=== PATIENT | female | born 1995 | race Caucasian/White ===

== ENCOUNTER 2019-04-12 20:00 | Inpatient (IN) | payer OTHER ==
[~2019-04-12 20:00] MED LIST: DINOPROSTONE 10 MG VAGINAL SUPPOSITORY VG ONE
[2019-04-12 21:10] LABS: BASO % 0.7 % (0-2.0); EOS % 0.9 % (0-4.5); HEMATOCRIT 33.3 % (32.4-45.2); HEMOGLOBIN 10.7 GM/dL (10.7-15.3); LYMPH % 25.3 % (8-40); MCH 24.5 pg (25.7-33.7); MCHC 32.1 g/dl (32.0-36.0); MEAN CELL VOLUME 76.5 fl (80-96); MONO % 6.6 % (3.8-10.2); NEUT % 66.5 % (42.8-82.8); PLATELET COUNT 165 K/MM3 (134-434); RBC 4.35 M/mm3 (3.60-5.2); RDW 16.3 % (11.6-15.6); WHITE BLOOD COUNT 7.1 K/mm3 (4.0-10.0)
[2019-04-12 21:27] LABS: INR 0.92 (0.83-1.09); PROTHROMBIN TIME (PATIENT) 10.9 SEC (9.7-13.0)
[2019-04-12 21:29] LABS: ACTIVATED PTT 25.7 SECONDS (25.2-36.5)
[2019-04-12 21:37] LABS: BLOOD UREA NITROGEN 13.3 mg/dL (7-18); CALCIUM 8.7 mg/dL (8.5-10.1); CREATININE 0.7 mg/dL (0.55-1.3); POTASSIUM 3.5 mmol/L (3.5-5.1)
--- NOTE | 2019-04-12 22:03 | PN ---
Ante-Partal Exam - Subjective Subjective: Pt here cervidil induction due to postdates Vital Signs: Vital Signs Temperature Pulse Rate 91 H 04/12/19 21:00 Respiratory Rate 18 04/12/19 21:00 Blood Pressure 138/75 04/12/19 21:00 O2 Sat by Pulse Oximetry (%) Bleeding: No Headache: No Visual changes: No Right upper quadrant pain: No - Contractions Contractions: No Monitor Mode: External - Exam during Labor Heart Rate: 130 Variability: Moderate Heart Rate Location: [facility] Category: I Monitor Accelerations: Present Monitor Decelerations: None Exam: Vaginal (cervidil placed) Dilatation (cm): closed Effacement (%): 80 Amniotic Membrane Status: Intact Presentation: Vertex Station: 0 - Intrapartum Hemorrhage Risk Risk Score: 0 Risk Level: Low Risk - Assessment/Plan Assessment/Plan: Postdates at 40.4 week Plan cervidil placed
[2019-04-12 22:46] VITALS: BMI 32.8
[2019-04-13] MEDS: ELECTROLYTE-148 SOLN 1,000 ML IV SCH (02:00)
[2019-04-13] MEDS ORDERED: FENTANYL/BUPIVACAINE/NS/PF - PCEA - 50 ML DISP.SYRIN EP ONE (03:43)
[2019-04-13] MEDS ORDERED: BUPIVACAINE HCL/PF 0.25% (2.5MG/ML) 10 ML VIAL ONE (03:48)
[2019-04-13] MEDS ORDERED: NALOXONE HCL 0.4 MG/ML VIAL IVPUSH PRN (04:15)
[2019-04-13] MEDS ORDERED: FENTANYL/BUPIVACAINE/NS/PF - PCEA - 50 ML DISP.SYRIN EP SCH ×2 (04:15→04:49)
[2019-04-13] MEDS ORDERED: OXYTOCIN 20 UNITS in 0.9% NS 20 UNIT/1,000 ML INFUS.BAG IV ONE (04:16)
[2019-04-13] MEDS: OXYTOCIN 20 UNITS in 0.9% NS 20 UNIT/1,000 ML INFUS.BAG IV SCH (05:20)
[2019-04-13] MEDS ORDERED: METHYLERGONOVINE MALEATE 0.2 MG/1 ML AMP IM PRN (05:50)
[2019-04-13] MEDS ORDERED: WITCH HAZEL 50% (TUCKS) 40 PAD/JAR PAD TP PRN (05:50)
[2019-04-13] MEDS ORDERED: BENZOCAINE 20% 57 GM BOTTLE TP PRN (05:50)
[2019-04-13] MEDS ORDERED: BISACODYL 10 MG SUPP.RECT RC PRN (05:50)
[2019-04-13] MEDS ORDERED: BENZOCAINE 28 GM HEMORRHOIDAL OINTMENT TP PRN (05:50)
--- NOTE | 2019-04-13 05:53 | PN ---
Delivery - Delivery Vaginal Delivery: Spontaneous Type of Anesthesia: Epidural Episiotomy/Laceration: 2nd degree EBL (cc): 300 Delivery, Single - [place] Feeding Plan Initial Plan: Exclusive throughout hospitalization Remarks - Remarks Remarks: Normal spontaneous vaginal delivery of a live girl over second degree laceration. Nose / Oropharynx suctioned @ perineum. Cord clamped and cut. Baby handed to nurse. Placenta expelled spontaneously intact. Laceration repaired with 2.0 Chromic.
--- NOTE | 2019-04-13 05:56 | HP ---
Past Medical History - Admission Chief Complaint: Elective induction History of Present Illness: 23 yo , @ 40 weeks gestation, EDC 04/08/19, admitted for elective induction due to postdates . History Source: Patient Limitations to Obtaining History: No Limitations - Past Medical History ...: 1 ...Para: 0 ...EDC by Sono: 04/08/19 - Past Surgical History Past Surgical History: Yes: None Hx Myomectomy: No Hx Transabdominal Cerclage: No - Smoking History Smoking history: Never smoked - Alcohol/Substance Use Hx Alcohol Use: No - Social History Usual Living Arrangement: Yes: With Spouse History of Recent Travel: No Home Medications - Allergies Allergies/Adverse Reactions: Allergies Allergy/AdvReac Type Severity Reaction Status Date / Time No Known Drug Allergies Allergy Verified 04/13/19 04:48 - Home Medications Home Medications: Ambulatory Orders Pnv No.103/Folic/Om3s/Fish Oil [ Gummies] 1 each PO DAILY 04/13/19 Family Medical History Family History: Unremarkable Review of Systems - Review of Systems Constitutional: reports: No Symptoms Eyes: reports: No Symptoms HENT: reports: No Symptoms Neck: reports: No Symptoms Cardiovascular: reports: No Symptoms Respiratory: reports: No Symptoms Gastrointestinal: reports: No Symptoms Genitourinary: reports: No Symptoms Breasts: reports: No Symptoms Reported Musculoskeletal: reports: No Symptoms Integumentary: reports: No Symptoms Neurological: reports: No Symptoms Endocrine: reports: No Symptoms Hematology/Lymphatic: reports: No Symptoms Psychiatric: reports: No Symptoms Pain Intensity: 2 Physical Exam - Maternity Vital Signs: Vital Signs Temperature 98.1 F 04/13/19 04:00 Pulse Rate 75 04/13/19 04:50 Respiratory Rate 18 04/13/19 04:50 Blood Pressure 119/61 04/13/19 04:50 O2 Sat by Pulse Oximetry (%) 100 04/13/19 04:50 Constitutional: Yes: No Distress Eyes: Yes: Conjunctiva Clear HENT: Yes: Atraumatic Neck: Yes: Supple Cardiovascular: Yes: Regular Rate and Rhythm Lungs: Clear to auscultation - Abdominal Exam/OB Number of Fetuses: Single Presentation: Vertex - Vaginal Exam/OB Presentation: Vertex/Position Station: -2 - Physical Exam Integumentary: Yes: WNL ...Motor Strength: WNL Psychiatric: Yes: Alert, Oriented - Labs Lab Results: CBC, BMP 04/12/19 20:50 04/12/19 20:50 Problem List - Problems (1) 40 weeks gestation of Problems reviewed: Yes Code(s): Z3A.40 - 40 WEEKS GESTATION OF Assessment/Plan Postdates Admit for cervidil induction
[2019-04-13] MEDS ORDERED: IBUPROFEN 600 MG TABLET (FP) PO ONE (07:54)
[2019-04-13] MEDS ORDERED: ACETAMINOPHEN 325 MG TABLET (FP) ONE ×2 (07:55)
[2019-04-13] MEDS: IBUPROFEN 600 MG TABLET (FP) PO PRN ×2 (08:00→17:54)
[2019-04-13] MEDS: ACETAMINOPHEN 325 MG TABLET (FP) PO PRN ×2 (08:00→17:54)
[2019-04-13] MEDS: PRENATAL VITAMINS W/ FOLIC ACID TABLET (FP) PO SCH (10:33)
[2019-04-13] MEDS: FERROUS SO4 325 MG TABLET (FP) PO SCH ×2 (10:34→21:27)
--- NOTE | 2019-04-14 08:47 | PN ---
Post Progress Note - Subjective Subjective: 23 yo Para 1 status post vaginal delivery, seen and evaluated. Doing well Post Day: 1 Type of Delivery: Vital Signs: Vital Signs Temperature 97.9 F 04/14/19 08:28 Pulse Rate 73 04/14/19 08:28 Respiratory Rate 18 04/14/19 08:28 Blood Pressure 116/60 04/14/19 08:28 O2 Sat by Pulse Oximetry (%) 100 04/13/19 04:50 Breast Exam: Yes: Soft Uterus: Yes: Fundus Firm Abdomen/GI: Yes: Abdomen soft, Tolerating PO Lochia: Yes: Rubra Lochia, amount: Moderate Extremities: Yes: Calves non-tender Perineum: Yes: Laceration (Healing) Activity: Ambulating - Labs Labs: CBC WBC 7.1 K/mm3 (4.0-10.0) 04/12/19 20:50 RBC 4.35 M/mm3 (3.60-5.2) 04/12/19 20:50 Hgb 10.7 GM/dL (10.7-15.3) 04/12/19 20:50 Hct 33.3 % (32.4-45.2) 04/12/19 20:50 MCV 76.5 fl (80-96) L 04/12/19 20:50 MCH 24.5 pg (25.7-33.7) L 04/12/19 20:50 MCHC 32.1 g/dl (32.0-36.0) 04/12/19 20:50 RDW 16.3 % (11.6-15.6) H 04/12/19 20:50 Plt Count 165 K/MM3 (134-434) 04/12/19 20:50 MPV 10.0 fl (7.5-11.1) 04/12/19 20:50 Absolute Neuts (auto) 4.7 K/mm3 (1.5-8.0) 04/12/19 20:50 Neutrophils % 66.5 % (42.8-82.8) 04/12/19 20:50 Lymphocytes % 25.3 % (8-40) 04/12/19 20:50 Monocytes % 6.6 % (3.8-10.2) 04/12/19 20:50 Eosinophils % 0.9 % (0-4.5) 04/12/19 20:50 Basophils % 0.7 % (0-2.0) 04/12/19 20:50 Nucleated RBC % 0 % (0-0) 04/12/19 20:50 Problem List - Problems (1) 40 weeks gestation of Code(s): Z3A.40 - 40 WEEKS GESTATION OF (2) Status post normal vaginal delivery Code(s): [id number] - Assessment/Plan Status post vaginal delivery Stable Continue routine care
[2019-04-14 08:57] LABS: BASO % 0.7 % (0-2.0); EOS % 1.4 % (0-4.5); HEMOGLOBIN 9.8 GM/dL (10.7-15.3); LYMPH % 26.5 % (8-40); MCH 25.2 pg (25.7-33.7); MCHC 32.7 g/dl (32.0-36.0); MEAN CELL VOLUME 77.1 fl (80-96); MEAN PLT VOLUME 9.8 fl (7.5-11.1); MONO % 7.4 % (3.8-10.2); PLATELET COUNT 132 K/MM3 (134-434); RDW 16.6 % (11.6-15.6); WHITE BLOOD COUNT 7.4 K/mm3 (4.0-10.0)
[2019-04-14] MEDS ORDERED: FLU VACCINE QUAD 60 MCG/0.5 ML (MDV 19-20) IM ONE (10:00)
[2019-04-14] MEDS ORDERED: DIPHTH,PERTUSS(ACELL),TET 0.5 ML DISP.SYRIN IM ONE (10:00)
[2019-04-14] MEDS ORDERED: FLU VACC QS2019-20(6MOS UP)/PF 60 MCG/0.5 ML SYRINGE IM ONE ×2 (10:00)
[2019-04-14] MEDS: PRENATAL VITAMINS W/ FOLIC ACID TABLET (FP) PO SCH (10:05)
[2019-04-14] MEDS: FERROUS SO4 325 MG TABLET (FP) PO SCH ×2 (10:05→21:19)
[2019-04-14] MEDS: IBUPROFEN 600 MG TABLET (FP) PO PRN ×2 (10:05→21:19)
[2019-04-14] MEDS: ACETAMINOPHEN 325 MG TABLET (FP) PO PRN ×2 (10:06→21:20)
[2019-04-14] MEDS: ELECTROLYTE-148 SOLN 1,000 ML IV SCH (14:50)
[2019-04-14] MEDS: OXYTOCIN 20 UNITS in 0.9% NS 20 UNIT/1,000 ML INFUS.BAG IV SCH (14:50)
[2019-04-14] MEDS ORDERED: SENNOSIDES/DOCUSATE COMBO (SENNA PLUS) TABLET (UD) PO PRN (22:00)
--- NOTE | 2019-04-15 09:13 | DS ---
Physical Exam-SHANK STITCHER Vital Signs: Vital Signs Temperature 97.8 F 04/14/19 21:17 Pulse Rate 93 H 04/14/19 21:17 Respiratory Rate 20 04/14/19 21:17 Blood Pressure 122/83 04/14/19 21:17 O2 Sat by Pulse Oximetry (%) 100 04/13/19 04:50 Constitutional: Yes: Well Nourished Eyes: Yes: Conjunctiva Clear HENT: Yes: Atraumatic Neck: Yes: Supple Cardiovascular: Yes: Regular Rate and Rhythm Respiratory: Yes: Regular Gastrointestinal: Yes: Normal Bowel Sounds Pelvis: Yes: WNL External Genitalia: Yes: Normal Vaginal Exam: Yes: Normal Uterus: Yes: Firm ....Post : Yes: Uterus firm, Moderate lochia serosa Breast(s): Yes: WNL Musculoskeletal: Yes: WNL Extremities: Yes: WNL Integumentary: Yes: WNL Neurological: Yes: Alert, Oriented ...Motor Strength: WNL Psychiatric: Yes: Alert, Oriented Labs: CBC, BMP 04/14/19 07:35 04/12/19 20:50 Delivery - Delivery Vaginal Delivery: Spontaneous Type of Anesthesia: Local, Epidural Episiotomy/Laceration: 2nd degree EBL (cc): 300 Delivery, Single - Stages of Labor Date 1st Stage Initiatied: 04/13/19 Time 1st Stage Initiated: 03:00 Date 2nd Stage Initiated: 04/13/19 Time 2nd Stage Initiated: 05:00 Date of Delivery: 04/13/19 Time of Delivery: 05:19 Time Placenta Delivered: 05:21 - Condition of Hand I Thermal Cutter/Applications Support Specialist Present: No Infant Gender: Female Weight: 8 lb Position: Left, OA Total Hours ROM (Hrs/Mins): 1H11M - 1 Minute Total Score: 9 5 Minutes Total Score: 9 - [place] Feeding Plan Initial Plan: Exclusive throughout hospitalization Discharge Summary Problems reviewed: Yes Reason For Visit: INDUCTION OF LABOR Current Active Problems 40 weeks gestation of (Acute) Status post normal vaginal delivery (Acute) Procedures: Principal: Normal spontaneous vaginal delivery Hospital Course: Routine care Health Concerns: None Plan of Treatment: Ambulation Analgesia as needed F/U with MD in 6 weeks Goals: Resume regular activities in 4-6 weeks Condition: Good - Instructions Diet, Activity, Other Instructions: Regular diet No douching, no sexual intercourse x 6 weeks. F/U with MD in 6 weeks Disposition: HOME - Home Medications Comprehensive Discharge Medication List: Ambulatory Orders Pnv No.103/Folic/Om3s/Fish Oil [ Gummies] 1 each PO DAILY 04/13/19
[2019-04-15] MEDS: PRENATAL VITAMINS W/ FOLIC ACID TABLET (FP) PO SCH (11:43)
[2019-04-15] MEDS: FERROUS SO4 325 MG TABLET (FP) PO SCH (11:43)
[2019-04-15 12:17] VITALS: BP 137/78; PULSE 89; TEMP 98.6
== END 2019-04-15 14:30 | disposition home or self-care (01) | DRG 560 ==
LOC: JLDR 20:00 → J3W 04-13 08:17
PROVIDERS: ADMIT Obstetrics & Gynecology; ATTEND Obstetrics & Gynecology
PROC: 3E0P7VZ Introduction of Hormone into Female Reproductive, Via Natural or Artificial Opening (ICD-10-PCS; 2019-04-12)
PROC: 0KQM0ZZ Repair Perineum Muscle, Open Approach (ICD-10-PCS; principal; 2019-04-13)
PROC: 10E0XZZ Delivery of Products of Conception, External Approach (ICD-10-PCS; 2019-04-13)
DX: O48.0 Post-term pregnancy (principal); O70.1 Second degree perineal laceration during delivery; Z3A.40 40 weeks gestation of pregnancy; Z37.0 Single live birth
CPT/HCPCS: 36415; 59409; 80048; 85025; 85610; 85730; 86593; 86850; 86900; 86901; 90686; 90715